=== PATIENT | female | born 1985 | race Caucasian/White ===

== ENCOUNTER → 2021-08-11 15:59 | Outpatient (CLI) | payer BC, SELFPAY ==
[2021-08-11 17:16] LABS: Basophils # 0.2 K/mm3 (0-0.2); Basophils % 1.2 % (0.1-2.0); Eosinophils # 0.4 K/mm3 (0.0-0.4); Eosinophils % 2.8 % (0.1-12.0); Hematocrit 45.7 % (37.0-47.0); Hemoglobin 15.4 g/dL (12.2-16.2); Lymphocytes # 3.6 K/mm3 (0.7-4.5); Lymphocytes % 26.2 % (10-50); Mean Corpuscular HGB Conc 33.6 g/dL (31.8-35.4); Mean Corpuscular Hemoglobin 29.5 pg (27.0-31.2); Mean Corpuscular Volume 87.9 fl (81-99); Mean Platelet Volume 8.8 fl (7.4-10.4); Monocytes # 0.5 K/mm3 (0.1-1.0); Neutrophils % 65.8 % (37.0-80.0); Platelet Count 277 K/mm3 (142-424); Red Cell Distribution Width 14.8 % (11.5-17.5); White Blood Count 13.7 K/mm3 (4.8-10.8)
[2021-08-11 17:20] LABS: Chloride 103 mmol/L (98-107); Potassium 3.9 mmoL/L (3.5-5.1); Sodium 138 mmol/L (136-145)
[2021-08-11 17:22] LABS: Alanine Aminotransferase 41 U/L (12-78); Aspartate Amino Transferase 40 U/L (14-36); Blood Urea Nitrogen 12 mg/dl (7-17); Estimated Glomerular Filt Rate 95 ml/min (>60); GFR (African American) 115 ML/MIN (>60)
[2021-08-11 17:23] LABS: Albumin Level 4.3 g/dl (3.5-5.0); Albumin/Globulin Ratio 1.5 (1.1-1.8); Alkaline Phosphatase 97 U/L (38-126); Anion Gap 9.9 mEq/L (5-15); Bilirubin,Total 0.6 mg/dl (0.2-1.3); Calcium 8.8 mg/dl (8.4-10.2); Carbon Dioxide 29 mmol/L (22.0-30.0); Chol/HDL Ratio 6.5 (1-3.5); Cholesterol 241 mg/dl (140-200); Globulin 2.9 g/dL (1.3-3.2); Glucose 113 mg/dl (74-100); HDL Cholesterol 37 mg/dl (40-60); Total Protein,Serum 7.2 g/dl (6.3-8.2); Triglycerides 284 mg/dl (30-150); VLDL Cholesterol 57 mg/dL (0-40)
[2021-08-11 17:35] LABS: Direct LDL Cholesterol 163.96 mg/dL (100-129)
[2021-08-11 17:54] LABS: Thyroid Stimulating Hormone 2.31 uIU/mL (0.465-4.68)
[2021-08-18 08:34] LABS: Hep A Ab, IgM Negative (Negative); Hepatitis B Core Antibody IgM Negative (Negative); Hepatitis B Surface Antigen Negative (Negative); Hepatitis C Antibody 0.2 s/co ratio (0.0-0.9)
== END ==
PROVIDERS: Nurse Practitioner Family; PCP Nurse Practitioner Family; Visit Provider Nurse Practitioner Family
DX: Z00.00 Encounter for general adult medical examination without abnormal findings (principal); R73.9 Hyperglycemia, unspecified; R53.83 Other fatigue; R74.8 Abnormal levels of other serum enzymes
CPT/HCPCS: 36415; 80053; 80061; 80074; 83036; 84443; 85025

== ENCOUNTER → 2021-08-30 08:24 | Outpatient (CLI) | payer BC, SELFPAY ==
--- NOTE | 2021-08-30 08:27 | US_ITS ---
FINAL REPORT CLINICAL HISTORY: ELEVATED LIVER ENZYMES FINDINGS: Ultrasound images of the right upper quadrant were obtained. The liver parenchyma is increased in echogenicity. The gallbladder is well visualized and the wall appears normal. There is a trace amount of sludge in the gallbladder. There are no gallstones. The common duct is normal. Limited images of the right kidney are unremarkable. IMPRESSION: Fatty infiltrated liver. Trace amount of sludge in the gallbladder. Reviewed, Interpreted and Dictated by Rivera Holloway MD Transcribed by Steven Mcfadden Authenticated by Rivera Holloway MD on 08/30/2021 02:18:[address] [facility]
== END ==
PROVIDERS: PCP Nurse Practitioner Family; Visit Provider Nurse Practitioner Family
DX: R74.8 Abnormal levels of other serum enzymes (principal)
CPT/HCPCS: 76705